=== PATIENT | female | born 1930 | race Caucasian/White ===

== ENCOUNTER 2017-03-27 18:09 | Inpatient (IN) | payer MEDICARE, OTHER ==
[~2017-03-27] VITALS: Ht 154.9 cm; Wt 40.8 kg
[~2017-03-27 18:09] MED LIST: ACETAMINOPHEN325 MG PO; COLACE100 MG PO; HYDROCODON-ACE1 EAC7 PO; LEVAQUIN250 MG PO; LOVENOX40 MG/0.4 SC; MEGACE400 MG/10 PO; OMEPRAZOLE20 M1 PO; OXYCODONE HCL5 MG PO; SALINE FLUSH10 ML IV; SENOKOT-S TABLE1 TAB PO
[2017-03-27 18:27] LABS: BASOPHILS 0.1 % (0-2); EOSINOPHILS 0 % (0-7); HEMATOCRIT 42.2 % (36.0-48.0); HEMOGLOBIN 14.2 g/dL (12-16); IMMATURE GRANULOCYTES 0.3 % (0-5); LYMPHOCYTES 4.1 % (15-50); MCH 30.6 pg (26.0-34.0); MCHC 33.6 g/dL (31.0-37.0); MCV 90.9 fL (80.0-100.0); MEAN PLATELET VOLUME 9.9 fL (7.4-10.4); NEUTROPHILS 86.5 % (40-80); RBC 4.64 10x6/uL (4.00-5.40); WBC 6.8 10x3/uL (4.8-10.8)
[2017-03-27 18:29] LABS: PLATELET COUNT 212 10x3/uL (130-400)
[2017-03-27 18:51] LABS: ALBUMIN 3.4 g/dL (3.4-5.0); ANION GAP 12.7 mmol/L (8-16); BILIRUBIN - TOTAL 0.38 mg/dL (0.2-1.3); CALCIUM 8.8 mg/dL (8.5-10.1); CARBON DIOXIDE 27.1 mmol/L (21.0-32.0); CREATININE - SERUM 0.9 mg/dL (0.6-1.3); POTASSIUM - SERUM 3.8 mmol/L (3.5-5.1)
[2017-03-27 20:15] LABS: CREATINE KINASE 77 UL (21-215); LIPASE 133 U/L (73-393); PRO BNP 725 pg/mL (0-450); THYROID STIMULATING HORMONE 0.65 uIU/mL (0.36-3.74)
[2017-03-27 20:16] LABS: TROPONIN-I < 0.017 ng/mL (0.000-0.060)
[2017-03-27 20:53] LABS: APPEARANCE CLEAR (CLEAR); BILIRUBIN NEGATIVE (NEGATIVE); COLOR YELLOW (YELLOW); GLUCOSE NEGATIVE (NEGATIVE); KETONE MODERATE mg/dL (NEGATIVE); NITRITE NEGATIVE (NEGATIVE); PROTEIN NEGATIVE (NEGATIVE); SPECIFIC GRAVITY 1.015 (1.005-1.020); UROBILINOGEN NORMAL (NORMAL)
[2017-03-27 20:55] LABS: BACTERIA FEW /hpf (NONE SEEN)
--- NOTE | 2017-03-27 22:10 | NUR ---
PT ARRIVED ON UNIT VIA STRETCHER ESCORTED BY ER STAFF, SPOUSE AND FAMILY FRIEND. POSITIONED IN BED FOR COMFORT. IV FLUIDS STARTED PER ORDER. SIDE RAILS UP X2 FOR SAFETY. BED ALARM IN USE.
--- NOTE | 2017-03-27 22:30 | NUR ---
ASSISTED PT UP TO USE BSC...VERY WEAK AND DRIBBLING URINE. PLACED DEPENDS ON PT PER REQUEST. POSITIONED IN BED FOR COMFORT.
[2017-03-27 22:42] VITALS: BP 181/83; BMI 17.0
--- NOTE | 2017-03-27 22:54 | NUR ---
ADMISSION ASSESSMENT, HISTORY, AND MEDICATION RECONCILLIATION COMPLETE.
[2017-03-28] VITALS: BP 151/71
[2017-03-28 04:00] VITALS: BP 134/69
--- NOTE | 2017-03-28 07:27 | NUR ---
REPORT RECEIVED FROM ECHO VASC TECH NURSE. CALL LIGHT IN REACH.
--- NOTE | 2017-03-28 08:10 | NUR ---
ASSESSMENT COMPLETED. BED ALARM TURNED ON. CALL LIGHT IN REACH. WILL CONTINUE WITH PLAN OF CARE.
[2017-03-28 09:26] VITALS: BP 144/58
--- NOTE | 2017-03-28 10:08 | NUR ---
TO RADIOLOGY VIA .
--- NOTE | 2017-03-28 10:20 | NUR ---
BACK IN ROOM SCDs APPLIED TO BLE PER ORDER. BED ALARM ON. CALL LIGHT IN REACH.
--- NOTE | 2017-03-28 11:00 | NUR ---
RESTING QUIETLY IN BED. FAMILY AT BEDSIDE. SHABANA MAT IN USE.
[2017-03-28 13:11] VITALS: BP 103/55
--- NOTE | 2017-03-28 13:51 | NUR ---
ATTEMPTED TO GET OOB BY HERSELF TO GO TO THE BR. PULLED IV OUT WITH TIP INTACT. RESITED TO RIGHT ARM WITH 22 GA X1 STICK. EXPLAINED TO PATIENT THAT SHE HAS TO PUSH THE RED BUTTON ON THE REMOTE FOR HELP WHEN WANTING TO GET UP. VERBALIZED UNDERSTANDING. BED ALARM ON. CALL LIGHT IN REACH.
--- NOTE | 2017-03-28 15:55 | NUR ---
MANAGED TO GET OOB WITH HER 'S HELP AND VOIDED ON FLOOR. ASSISTED BACK TO BED PER GERARDO VARGHESE. GOWN, SOCKS, AND SCDs CHANGED PER ABIMAEL. ALARM TURNED BACK ON. IN ROOM. CALL LIGHT IN REACH.
[2017-03-28 16:54] VITALS: BP 138/56
--- NOTE | 2017-03-28 17:55 | NUR ---
OOB WITH AGAIN. EXPLAINED TO THEM IT WOULD BE SAFER FOR THEM TO CALL FOR HELP. VERBALIZED UNDERSTANDING.
--- NOTE | 2017-03-28 18:20 | NUR ---
NO CHANGES IN INITIAL ASSESSMENT. IN ROOM. BED ALARM ON. CALL LIGHT IN REACH. WILL CONTINUE WITH PLAN OF CARE.
[2017-03-28 20:00] VITALS: BP 160/69
--- NOTE | 2017-03-28 20:00 | NUR ---
ASSESSMENT PER FLOWSHEET. IV PATENT RT FOREARM OF NS AT 100CC'S/HR SITE CLEAR. SPOUSE IN ROOM. SR UP X2 CALL LIGHT WITHIN REACH ACTIVATED BED ALARM BED. PT VOIDS FREQUENTLY ON BED AGUAYO PINK PAD CHANGED.
--- NOTE | 2017-03-28 21:35 | NUR ---
MEDS GIVEN PER JUN. PLACED ON BEDPAN.
--- NOTE | 2017-03-28 23:37 | NUR ---
INC URINE COMPLETE BED LINENS CHANGE DONE
--- NOTE | 2017-03-29 03:00 | NUR ---
EYES CLOSED RESPIRATIONS WITH EASE AND UNLABORED. SPOUSE AT BEDSIDE.
[2017-03-29 04:00] VITALS: BP 152/68
--- NOTE | 2017-03-29 04:00 | NUR ---
INC URINE COMPLETE LINENS CHANGED.
[2017-03-29 05:59] LABS: BASOPHILS 0.2 % (0-2); EOSINOPHILS 0 % (0-7); HEMATOCRIT 41.7 % (36.0-48.0); IMMATURE GRANULOCYTES 0.3 % (0-5); LYMPHOCYTES 15.7 % (15-50); MCH 30.4 pg (26.0-34.0); MCHC 33.6 g/dL (31.0-37.0); MCV 90.7 fL (80.0-100.0); MEAN PLATELET VOLUME 10.1 fL (7.4-10.4); MONOCYTES 11.9 % (2-11); NEUTROPHILS 71.9 % (40-80); PLATELET COUNT 199 10x3/uL (130-400); RDW 13.8 % (11.5-14.5); WBC 6.3 10x3/uL (4.8-10.8)
--- NOTE | 2017-03-29 06:30 | NUR ---
K+ LEVEL=3.0 KCL 40MEQ PO GIVEN PER EDelvinPROTOCAME.
[2017-03-29 06:31] LABS: ALBUMIN 2.8 g/dL (3.4-5.0); ALKALINE PHOSPHATASE 69 U/L (46-116); ALT (SGPT) 21 U/L (10-68); CALC OSMOLALITY 270 mosm/kg (275-300); CALCIUM 8.2 mg/dL (8.5-10.1); CARBON DIOXIDE 23.6 mmol/L (21.0-32.0); CHLORIDE - SERUM 102 mmol/L (98-107); GLUCOSE 87 mg/dL (74-106); SODIUM 136 mmol/L (136-145); UREA NITROGEN 12 mg/dL (7-18)
[2017-03-29 06:34] LABS: CREATININE - SERUM 0.6 mg/dL (0.6-1.3); eGFR NON AFRICAN AMERICAN > 90 mL/min (90-120)
--- NOTE | 2017-03-29 07:05 | NUR ---
REPORT RECEIVED FROM DISTRIBUTION A CLASS LINEMAN NURSE. CALL LIGHT IN REACH.
--- NOTE | 2017-03-29 08:10 | NUR ---
ASSESSMENT COMPLETED. PLACED ON AND OFF BEBPAN. SCDs TO BLE. DENIES NEEDS. BED ALARM ON. CALL LIGHT IN REACH. WILL CONTINUE WITH PLAN OF CARE.
[2017-03-29 09:36] VITALS: BP 168/74
--- NOTE | 2017-03-29 10:00 | NUR ---
RESTING QUIETLY WITH EYES CLOSED. RESP EVEN,NONLABORED. FAMILY AT BEDSIDE.
[2017-03-29 10:36] LABS: MAGNESIUM - SERUM 1.8 mg/dL (1.8-2.4); PHOSPHOROUS 2.8 mg/dL (2.5-4.9)
[2017-03-29 12:49] VITALS: BP 135/80
--- NOTE | 2017-03-29 12:53 | NUR ---
AT BEDSIDE. NO NEEDS VOICED AT THIS TIME. CALL LIGHT IN REACH.
[2017-03-29 13:00] VITALS: Ht 154.9 cm; Wt 40.8 kg
--- NOTE | 2017-03-29 14:21 | HP ---
PATIENT: CLARY LAN MEDICAL RECORD: [id number] ACCOUNT: [id number] LOCATION:D.MS Valentin2222 : [birth year] ADMISSION DATE: 03/27/17 HISTORY AND PHYSICAL EXAMINATION HISTORY OF PRESENT ILLNESS: This 86-year-old patient who was admitted through the Emergency Room last night for generalized weakness. [facility] generalized increased weakness and inability to take care of her home functional needs. The patient has family that was concerned about her generalized disorientation and weakness. She was brought in and further evaluation was obtained. The patient was evaluated in the Emergency Room and other than significant dementia, found to have some mild dehydration and will need to be admitted for further evaluation. PAST MEDICAL HISTORY: Significant for dementia, osteoarthritis, anemia, and GERD. PAST SURGICAL HISTORY: Includes a hysterectomy. ALLERGIES: The patient has no known drug allergies. MEDICATIONS: Only medication at this time include Prilosec 20 mg daily. SOCIAL HISTORY: The patient does not smoke. She does not drink alcohol. Family is not present with her today. The patient is extremely confused, in no acute distress. REVIEW OF SYSTEMS: Indicates no fever or chills. No chest pain and other than disorientation to location and family, no other difficulties. PHYSICAL EXAMINATION: VITAL SIGNS: At time of history and physical as below. GENERAL: She is a thin, frail 86-year-old white female that is confused, in no acute distress. HEENT: Pupils equal, round and reactive to light. Extraocular movements are intact. Oral cavity and oropharynx is otherwise clear. NECK: No cervical or pharyngeal adenopathy. No nuchal rigidity. LUNGS: Coarse breath sounds heard in the bases. HEART: Regular rate and rhythm, I/ systolic ejection murmur. ABDOMEN: Soft, nontender. Positive bowel sounds. No hepatosplenomegaly, no masses. EXTREMITIES: Arthritic changes noted. She is able to move all 4 extremities. Sensation is intact, has 1+ radial pulse. No edema is noted. NEUROLOGIC: Cranial nerves II through XII are grossly intact. Muscle strength to left lower extremity and upper extremities is 4/5 and lower extremity is 3/5. Sensory is intact. ASSESSMENT: 1. Generalized confusion. 2. Weakness. 3. Loss of ADLs. 4. Mild dehydration. PLAN: We will replace the patient's IV fluids, electrolyte protocol, CT of the head. We will need case management for possible placement and check laboratory HISTORY AND PHYSICAL [id number] CLARY LAN. TRANSINT:[id number] Voice Confirmation ID: [id number] DOCUMENT ID: [id number] DIOGENES BURDEN MD at 1421 CC: [id number] DICTATION DATE: 03/28/17 0948 COMMERCIAL ESCROW ASSISTANT: 03/28/17 1042 ADM IN [facility] [address] [id number]
--- NOTE | 2017-03-29 14:36 | NUR ---
MAGNESIUM PO PER ELECTROLYTE PROTOCOL. WILL REPEAT 2ND DOSE IN 4 HOURS.
--- NOTE | 2017-03-29 16:20 | NUR ---
DENIES NEEDS AT THIS TIME. CALL LIGHT IN REACH.
[2017-03-29 16:35] VITALS: BP 150/70
--- NOTE | 2017-03-29 18:40 | NUR ---
2ND DOSE OF MAG PO. INCONTINENT OF LARGE STOOL. CLEANED AND LINENS CHANGED. NO OTHER CHANGES IN INITIAL ASSESSMENT. IN ROOM. CALL LIGHT IN REACH. SCDs TO BLE. BED ALARM ON. WILL CONTINUE WITH PLAN OF CARE.
--- NOTE | 2017-03-29 20:00 | NUR ---
ASSESSMENT PER FLOWSHEET. SR UP X3 CALL LIGHT WITHIN REACH BED ALARM BED ACTIVATED. SCD'S ON. IV PATENT RT WRIST OF NS AT 100CC'S/HR. SITE CLEAR. PATIENT CONFUSED. PT CRAWLING TO FOOT OF BED WITH LEGS HANGING OFF BED ALARM SOUNDING ASSISTED TO BSC. VOIDS SMALL AMOUNT CLOUDY YELLOW URINE. ASSISTED BACK TO BED
--- NOTE | 2017-03-29 21:00 | NUR ---
MEDS GIVEN PER MAR.
--- NOTE | 2017-03-29 22:32 | NUR ---
SPOUSE AT BEDSIDE NOW.
[2017-03-30] VITALS: BP 142/79
--- NOTE | 2017-03-30 00:12 | NUR ---
AWAKE VISITS WITH SPOUSE.
--- NOTE | 2017-03-30 02:30 | NUR ---
EYES CLOSED RESPIRATIONS WITH EASE AND UNLABORED.
[2017-03-30 04:00] VITALS: BP 137/65
--- NOTE | 2017-03-30 05:18 | NUR ---
RESTING QUIETLY DENIES NEEDS SPOUSE IN ROOM
[2017-03-30 05:53] LABS: BASOPHILS 0.2 % (0-2); EOSINOPHILS 0 % (0-7); HEMATOCRIT 40.8 % (36.0-48.0); HEMOGLOBIN 13.9 g/dL (12-16); IMMATURE GRANULOCYTES 0.2 % (0-5); LYMPHOCYTES 20.4 % (15-50); MCH 30.5 pg (26.0-34.0); MCHC 34.1 g/dL (31.0-37.0); MCV 89.5 fL (80.0-100.0); MEAN PLATELET VOLUME 10.4 fL (7.4-10.4); MONOCYTES 12.1 % (2-11); NEUTROPHILS 67.1 % (40-80); PLATELET COUNT 195 10x3/uL (130-400); RBC 4.56 10x6/uL (4.00-5.40); RDW 13.9 % (11.5-14.5); WBC 5.6 10x3/uL (4.8-10.8)
[2017-03-30 06:09] LABS: ALBUMIN 2.5 g/dL (3.4-5.0); ALKALINE PHOSPHATASE 69 U/L (46-116); ALT (SGPT) 17 U/L (10-68); CALC OSMOLALITY 276 mosm/kg (275-300); CALCIUM 8.7 mg/dL (8.5-10.1); CARBON DIOXIDE 24.2 mmol/L (21.0-32.0); CHLORIDE - SERUM 103 mmol/L (98-107); CREATININE - SERUM 0.6 mg/dL (0.6-1.3); GLUCOSE 97 mg/dL (74-106); MAGNESIUM - SERUM 1.8 mg/dL (1.8-2.4); POTASSIUM - SERUM 3.7 mmol/L (3.5-5.1); PROTEIN - SERUM 5.6 g/dL (6.4-8.2); SODIUM 137 mmol/L (136-145); eGFR NON AFRICAN AMERICAN > 90 mL/min (90-120)
[2017-03-30 06:17] LABS: UREA NITROGEN 20 mg/dL (7-18)
--- NOTE | 2017-03-30 06:23 | NUR ---
NO CHANGES IN ASSESSMENT. RESTING QUIETLY.
[2017-03-30 07:56] VITALS: BP 138/57
--- NOTE | 2017-03-30 11:52 | NUR ---
PT RESTING IN BED WITH EYES OPEN CALL LIGHT IN REACH AT BEDSIDE WILL MONITER
[2017-03-30 12:23] VITALS: BP 122/58
--- NOTE | 2017-03-30 12:24 | NUR ---
HAS BEEN WITHOUT DISTRESS.VERY LARGE BM EARLIER,BROWN WATERY STOOL.BED CHANGE WITH ALESHA.
[2017-03-30] MEDS ORDERED: ARICEPT5 MG PO (14:01)
[2017-03-30] MEDS ORDERED: ATIVAN2 MG/ML IV (14:01)
[2017-03-30 16:00] VITALS: BP 115/56
--- NOTE | 2017-03-30 16:28 | NUR ---
CM REASSESSMENT NOTE: PATIENT IS DISCHARGING TO IP REHAB TODAY
== END 2017-03-30 20:00 | DRG 947 ==
LOC: D.ER 18:09 → D.MS 21:14
PROVIDERS: Emergency Medicine; Family Medicine; ADMIT Emergency Medicine
DX: R53.1 Weakness (principal); G93.41 Metabolic encephalopathy; E86.0 Dehydration; F03.90 Unspecified dementia, unspecified severity, without behavioral disturbance, psychotic disturbance, mood disturbance, and anxiety; E87.6 Hypokalemia; R41.0 Disorientation, unspecified

== ENCOUNTER 2017-03-30 19:50 | Inpatient (IN) | payer MEDICARE ==
[~2017-03-30] VITALS: Ht 154.9 cm; Wt 40.8 kg
--- NOTE | ~2017-03-30 | RHP ---
PATIENT: CLARY LAN MEDICAL RECORD: [id number] ACCOUNT: [id number] LOCATION:PATT Valentin1111 : [birth year] ADMISSION DATE: 03/30/17 REHABILITATION HISTORY AND PHYSICAL EXAMINATION POST ADMISSION PHYSICIAN EXAMINATION POST-ADMISSION PHYSICAL EXAMINATION AND HISTORY AND PHYSICAL DATE OF ADMISSION: 03/30/2017 ADMITTING DIAGNOSIS: Acute metabolic encephalopathy. HISTORY OF PRESENT ILLNESS: The patient is an 86-year-old female patient admitted with acute metabolic encephalopathy. She was admitted through the Emergency Room on 03/27. The patient was brought by [facility] for generalized increased weakness and inability to take care of her functional needs. She was brought in for further evaluation. On exam, she is a frail 86-year-old female patient that was somewhat confused. Muscle strength in her left extremity and upper extremities was 4/5 and 3/5 in her lower. Coarse breath sounds throughout the bases. She was found to be dehydrated and hypokalemic with a potassium of 3 and an albumin of 2.5. She was admitted for IV fluid replacement and electrolyte replacement per protocol. Previously, per her spouse, she was moderately independent at home with a rolling walker. She does have dementia, but was able to dress, bathe, eat, and toilet without any assist. She was able to make any needs that she had known. Currently, she is alert, awake, and oriented to place. She is pleasantly confused, but engaged in conversation. Incontinent of bowel and bladder. Requires assist to get from bed to chair and sit to stand. Spouse would like to get her strength back and return her back home if possible. Comorbidities in this patient include dementia, dehydration, weakness, metabolic encephalopathy, loss of ADLs, hypokalemia, hypomagnesemia, osteoarthritis, and gastroesophageal reflux disease. PAST MEDICAL HISTORY: Significant for dementia, osteoarthritis, anemia, glaucoma, gastroesophageal reflux disease. PAST SURGICAL HISTORY: Includes hysterectomy. ALLERGIES: No known drug allergies. CURRENT MEDICATIONS: Include Protonix 40 mg daily, polyethylene glycol 17 grams in 8 ounces of water daily. She is on lorazepam 0.5 mg every 6 hours p.r.n., Aricept 0.5 mg at bedtime, and acetaminophen 650 mg every 6 hours p.r.n. fever. HABITS: No alcohol or tobacco use. FAMILY HISTORY: Noncontributory. SOCIAL HISTORY: As above, hopes to be able to return back home. REVIEW OF SYSTEMS: GENERAL: Denies weakness or fatigue. HEENT: Denies cold, cough, or congestion. CARDIOVASCULAR: Denies chest pain. PHYSICAL EXAMINATION: HISTORY AND PHYSICAL [id number] CLARY LAN VITAL SIGNS: Stable, afebrile. GENERAL: Elderly female, in no acute distress upon exam. HEENT: Normocephalic and atraumatic. Mucosa moist. NECK: Supple. No lymphadenopathy. LUNGS: Clear at this time. HEART: Regular rate and rhythm. ABDOMEN: Benign. EXTREMITIES: No clubbing, cyanosis or edema. NEUROLOGIC: She is slow to mentate. She does converse easily, but is noted to have some confusion. LABORATORY DATA: Her white count is 5.4, H&H of 14 and 41, and platelet count was noted to be 214. Her sodium is 137, potassium 3.5, BUN and creatinine of 21 and 0.5, and blood sugar is noted to be 102. ASSESSMENT: This is an 86-year-old female patient admitted to rehab with a working diagnosis of metabolic encephalopathy. The patient has potential to make improvement. We will institute the following multidisciplinary therapies including, but not limited to, physical, occupational, respiratory, speech, nutritional services, prosthetics and orthotics. Given her complex condition and risk for more complications, rehabilitation services cannot be provided at a low level of care such as a assisted facility. PLAN: 1. Admit to [facility] rehab for intensive inpatient therapy to include the following disciplines: A. Physical therapy to improve gait, all transfer skills and bed mobility to a modified independent level. B. Occupational therapy to improve activities of daily living to a modified independent level. C. Case management to assist with discharge planning and placement options. D. Nutrition to assist with nutritional needs. E. Rehabilitation nursing to assist in monitoring the patient's underlying medical conditions and to assist with any type of bowel or bladder management. 2. The patient's current medication and medical care will be continued. 3. The patient will be placed on standard fall precautions. 4. The patient's estimated length of stay is approximately 7-10 days. 5. Discuss this patient during care team staff meeting this week. We will go ahead and change medications to orally and we will follow up as needed. TRANSINT:[id number] Voice Confirmation ID: [id number] DOCUMENT ID: [id number] SANDEE notes whether there has been none or any medical/functional change since admission: - No change since PAS SANDEE attests patient continues to be appropriate for IRF: - Remains appropriate for IRF HISTORY AND PHYSICAL [id number] CLARY LAN SCOTT MD at 1838 CC: [id number] DICTATION DATE: 03/31/17 0844 DINING CAR SERVER: 03/31/17 1147 ADM [address] [place] [id number] [id number]
[~2017-03-30 19:50] MED LIST changes: +ARICEPT5 MG PO; +ATIVAN2 MG/ML IV
[2017-03-30 20:37] VITALS: BP 146/63
[2017-03-31 07:08] LABS: BASOPHILS 0 % (0-2); EOSINOPHILS 0.2 % (0-7); HEMATOCRIT 40.9 % (36.0-48.0); HEMOGLOBIN 13.9 g/dL (12-16); IMMATURE GRANULOCYTES 0.2 % (0-5); LYMPHOCYTES 24.3 % (15-50); MCH 30.3 pg (26.0-34.0); MCV 89.3 fL (80.0-100.0); MEAN PLATELET VOLUME 10.4 fL (7.4-10.4); MONOCYTES 11.9 % (2-11); NEUTROPHILS 63.4 % (40-80); PLATELET COUNT 214 10x3/uL (130-400); RBC 4.58 10x6/uL (4.00-5.40); RDW 13.9 % (11.5-14.5); WBC 5.4 10x3/uL (4.8-10.8)
[2017-03-31 07:34] LABS: CALC OSMOLALITY 276 mosm/kg (275-300); CALCIUM 9.1 mg/dL (8.5-10.1); CARBON DIOXIDE 27.8 mmol/L (21.0-32.0); CHLORIDE - SERUM 103 mmol/L (98-107); CREATININE - SERUM 0.5 mg/dL (0.6-1.3); GLUCOSE 102 mg/dL (74-106); POTASSIUM - SERUM 3.5 mmol/L (3.5-5.1); SODIUM 137 mmol/L (136-145); UREA NITROGEN 21 mg/dL (7-18); eGFR NON AFRICAN AMERICAN > 90 mL/min (90-120)
[2017-03-31 08:17] VITALS: BP 126/66
[2017-03-31 12:17] VITALS: Ht 154.9 cm; Wt 40.8 kg
[2017-03-31 19:28] VITALS: BP 136/72
[2017-04-01 06:23] LABS: BASOPHILS 0.4 % (0-2); EOSINOPHILS 0.2 % (0-7); HEMATOCRIT 39.4 % (36.0-48.0); HEMOGLOBIN 13.1 g/dL (12-16); IMMATURE GRANULOCYTES 0.2 % (0-5); LYMPHOCYTES 31.5 % (15-50); MCHC 33.2 g/dL (31.0-37.0); MCV 90.4 fL (80.0-100.0); MEAN PLATELET VOLUME 10.5 fL (7.4-10.4); MONOCYTES 12.2 % (2-11); NEUTROPHILS 55.5 % (40-80); PLATELET COUNT 212 10x3/uL (130-400); RBC 4.36 10x6/uL (4.00-5.40); RDW 13.9 % (11.5-14.5); WBC 4.9 10x3/uL (4.8-10.8)
[2017-04-01 06:30] LABS: ANION GAP 9.2 mmol/L (8-16); CALCIUM 9.5 mg/dL (8.5-10.1); CARBON DIOXIDE 30.4 mmol/L (21.0-32.0); POTASSIUM - SERUM 3.6 mmol/L (3.5-5.1)
[2017-04-01 06:31] LABS: CREATININE - SERUM 0.8 mg/dL (0.6-1.3)
[2017-04-01 08:00] VITALS: BP 127/60
[2017-04-01 19:45] VITALS: BP 131/53
[2017-04-02 08:28] VITALS: BP 137/68
[2017-04-02 21:43] VITALS: BP 127/64
[2017-04-03 08:05] VITALS: BP 106/55
[2017-04-03 19:45] VITALS: BP 143/61
[2017-04-04 07:08] LABS: BASOPHILS 0.1 % (0-2); EOSINOPHILS 0.3 % (0-7); HEMATOCRIT 38.6 % (36.0-48.0); HEMOGLOBIN 12.7 g/dL (12-16); IMMATURE GRANULOCYTES 0.9 % (0-5); LYMPHOCYTES 14.2 % (15-50); MCH 29.9 pg (26.0-34.0); MCHC 32.9 g/dL (31.0-37.0); MCV 90.8 fL (80.0-100.0); MEAN PLATELET VOLUME 10.5 fL (7.4-10.4); MONOCYTES 12.5 % (2-11); RBC 4.25 10x6/uL (4.00-5.40); RDW 13.9 % (11.5-14.5); WBC 10.2 10x3/uL (4.8-10.8)
[2017-04-04 07:14] LABS: PLATELET COUNT 315 10x3/uL (130-400)
[2017-04-04 07:35] LABS: CALC OSMOLALITY 278 mosm/kg (275-300); CARBON DIOXIDE 29.9 mmol/L (21.0-32.0); CHLORIDE - SERUM 102 mmol/L (98-107); CREATININE - SERUM 0.7 mg/dL (0.6-1.3); GLUCOSE 107 mg/dL (74-106); POTASSIUM - SERUM 3.9 mmol/L (3.5-5.1); SODIUM 138 mmol/L (136-145); UREA NITROGEN 21 mg/dL (7-18); eGFR NON AFRICAN AMERICAN 84 mL/min (90-120)
[2017-04-04 08:00] VITALS: BP 115/67
[2017-04-04 19:40] VITALS: BP 128/58
[2017-04-05 08:37] VITALS: BP 142/58
[2017-04-05 21:00] VITALS: BP 134/61
[2017-04-06 07:55] VITALS: BP 106/54
[2017-04-06 20:00] VITALS: BP 112/36
[2017-04-07 08:30] VITALS: BP 104/48
[2017-04-07 19:45] VITALS: BP 109/59
[2017-04-08 06:56] LABS: BASOPHILS 0.2 % (0-2); EOSINOPHILS 0.4 % (0-7); HEMATOCRIT 36.4 % (36.0-48.0); HEMOGLOBIN 12.2 g/dL (12-16); IMMATURE GRANULOCYTES 0.7 % (0-5); LYMPHOCYTES 13.4 % (15-50); MCHC 33.5 g/dL (31.0-37.0); MCV 89.4 fL (80.0-100.0); MEAN PLATELET VOLUME 9.8 fL (7.4-10.4); MONOCYTES 9.1 % (2-11); NEUTROPHILS 76.2 % (40-80); PLATELET COUNT 510 10x3/uL (130-400); RBC 4.07 10x6/uL (4.00-5.40); RDW 13.7 % (11.5-14.5); WBC 12.1 10x3/uL (4.8-10.8)
[2017-04-08 07:11] LABS: CALC OSMOLALITY 278 mosm/kg (275-300); CALCIUM 9.3 mg/dL (8.5-10.1); CARBON DIOXIDE 27.8 mmol/L (21.0-32.0); CHLORIDE - SERUM 102 mmol/L (98-107); CREATININE - SERUM 0.7 mg/dL (0.6-1.3); GLUCOSE 95 mg/dL (74-106); POTASSIUM - SERUM 4.5 mmol/L (3.5-5.1); SODIUM 138 mmol/L (136-145); UREA NITROGEN 22 mg/dL (7-18); eGFR NON AFRICAN AMERICAN 84 mL/min (90-120)
[2017-04-08 08:00] VITALS: BP 122/63
[2017-04-08 20:05] VITALS: BP 125/61
[2017-04-09 08:12] VITALS: BP 119/65
[2017-04-09 19:20] VITALS: BP 122/59
[2017-04-10 08:17] VITALS: BP 158/69
[2017-04-10 19:53] VITALS: BP 118/81
[2017-04-11 07:07] LABS: BASOPHILS 0.2 % (0-2); EOSINOPHILS 0.8 % (0-7); HEMATOCRIT 36.9 % (36.0-48.0); HEMOGLOBIN 12.5 g/dL (12-16); IMMATURE GRANULOCYTES 0.8 % (0-5); LYMPHOCYTES 19.4 % (15-50); MCH 30.4 pg (26.0-34.0); MCHC 33.9 g/dL (31.0-37.0); MCV 89.8 fL (80.0-100.0); MEAN PLATELET VOLUME 9.1 fL (7.4-10.4); MONOCYTES 8.8 % (2-11); PLATELET COUNT 571 10x3/uL (130-400); RBC 4.11 10x6/uL (4.00-5.40); RDW 13.8 % (11.5-14.5); WBC 9.3 10x3/uL (4.8-10.8)
[2017-04-11 07:24] LABS: CALC OSMOLALITY 271 mosm/kg (275-300); CALCIUM 9.4 mg/dL (8.5-10.1); CARBON DIOXIDE 24.4 mmol/L (21.0-32.0); CHLORIDE - SERUM 102 mmol/L (98-107); CREATININE - SERUM 0.7 mg/dL (0.6-1.3); GLUCOSE 96 mg/dL (74-106); POTASSIUM - SERUM 4.2 mmol/L (3.5-5.1); SODIUM 135 mmol/L (136-145); UREA NITROGEN 19 mg/dL (7-18); eGFR NON AFRICAN AMERICAN 84 mL/min (90-120)
[2017-04-11 08:00] VITALS: BP 121/62
[2017-04-11 20:00] VITALS: BP 107/66
[2017-04-12 08:00] VITALS: BP 103/55
[2017-04-12 20:00] VITALS: BP 109/59
[2017-04-13 08:13] VITALS: BP 112/63
[2017-04-13 19:30] VITALS: BP 107/52
[2017-04-14 08:00] VITALS: BP 133/80
[2017-04-14] MEDS ORDERED: MEGACE40 MG PO (10:43)
[2017-04-14 21:56] VITALS: BP 133/72
[2017-04-15 08:00] VITALS: BP 128/79
== END 2017-04-15 14:53 | DRG 72 ==
LOC: D.REHAB 19:50
PROVIDERS: Emergency Medicine
DX: G93.41 Metabolic encephalopathy (principal); F03.90 Unspecified dementia, unspecified severity, without behavioral disturbance, psychotic disturbance, mood disturbance, and anxiety; E86.0 Dehydration; R53.1 Weakness; E87.6 Hypokalemia; E83.42 Hypomagnesemia; M19.90 Unspecified osteoarthritis, unspecified site; K21.9 Gastro-esophageal reflux disease without esophagitis; R15.9 Full incontinence of feces; R32 Unspecified urinary incontinence